=== PATIENT | female | born 1990 | race Caucasian/White ===

== ENCOUNTER 2021-02-09 10:51 | Inpatient (IN) | payer BC ==
[~2021-02-09] VITALS: Ht 175.3 cm; Wt 86.4 kg
[2021-02-09 11:41] LABS: ALANINE AMINOTRANSFERASE 27 U/L (12-78); ALBUMIN 2.7 g/dL (3.4-5.0); ANION GAP 6 mmol/L (5-15); CALCIUM 8.9 mg/dL (8.5-10.1); CHLORIDE 105 mmol/L (98-107); CREATININE 0.65 mg/dL (0.55-1.02)
[2021-02-09 11:43] LABS: ALKALINE PHOSPHATASE 159 U/L (45-117); BILIRUBIN,TOTAL 0.2 mg/dL (0.2-1.0); TOTAL PROTEIN 7.3 g/dL (6.4-8.2)
[2021-02-09 11:54] LABS: BASOPHILS % (AUTO) 1 % (0-1); EOSINOPHILS % (AUTO) 1 % (1-7); LYMPHOCYTES % (AUTO) 23 % (22-44); MEAN CORPUSCULAR HEMOGLOBIN 33.6 pg (27.0-34.8); MEAN CORPUSCULAR HGB CONC 36.1 g/dL (32.4-35.8); MEAN PLATELET VOLUME 9.2 fL (7.4-10.4); MONOCYTES % (AUTO) 8 % (2-9); NEUTROPHILS % (AUTO) 67 % (42-75); PLATELET COUNT 183 x10^3/uL (130-400); RED BLOOD COUNT 3.92 x10^6/uL (3.82-5.3)
[2021-02-09 11:57] LABS: MICROSCOPIC INDICATED
[2021-02-09 12:28] LABS: CREATININE,URINE RANDOM 45.2 mg/dL
[2021-02-09] MEDS ORDERED: OXYTOCIN 30U/ 0.9% NaCL 500ML 500 ML IV ONE (13:00)
[2021-02-09] MEDS ORDERED: LACTATED RINGERS 1,000 ML IV SCH (13:00)
[2021-02-09] MEDS ORDERED: FENTANYL PF 100 MCG/2ML IVPush PRN (13:00)
[2021-02-09] MEDS ORDERED: TERBUTALINE 1 MG/ML, 1ML IVPush PRN (13:00)
[2021-02-09] MEDS ORDERED: TERBUTALINE 1 MG/ML, 1ML SQ PRN (13:00)
[2021-02-09] MEDS ORDERED: CALCIUM CARBONATE 500 MG TAB.CHEW PO PRN ×2 (13:00→21:00)
[2021-02-09] MEDS ORDERED: D5%-LACTATED RINGERS 1,000 ML IV SCH (13:00)
[2021-02-09] MEDS ORDERED: FENTANYL PF 100 MCG/2ML IV PRN (13:00)
[2021-02-09] MEDS ORDERED: ONDANSETRON 2MG/ML, 2ML IVPush PRN (13:00)
[2021-02-09] MEDS ORDERED: LIDOCAINE 1%, 20ML ONE ×2 (13:41→20:40)
[2021-02-09] MEDS ORDERED: MISOPROSTOL 200 MCG TABLET ONE (13:41)
[2021-02-09] MEDS ORDERED: NEWBORN KIT ONE (13:41)
[2021-02-09] MEDS ORDERED: MAGNESIUM HYDROXIDE 8%, 30ML UDC PO PRN (21:00)
[2021-02-09] MEDS ORDERED: MISOPROSTOL 200 MCG TABLET PR PRN (21:00)
[2021-02-09] MEDS ORDERED: ONDANSETRON 2MG/ML, 2ML IV PRN (21:00)
[2021-02-09] MEDS ORDERED: DOCUSATE 100 MG CAPSULE PO PRN (21:00)
[2021-02-09] MEDS ORDERED: RHOGAM FROM BLOOD BANK 1 NOTE EA IM/IV ONE (21:00)
[2021-02-09] MEDS ORDERED: OXYTOCIN 10 UNITS/ML, 1ML IM PRN (21:00)
[2021-02-09] MEDS ORDERED: OXYcodone/APAP 5/325MG TABLET PO PRN ×2 (21:00→21:11)
[2021-02-09] MEDS ORDERED: DIPH,PERTUSS(ACELL),TET VAC/PF NC IM-VACC PRN (21:00)
[2021-02-09] MEDS ORDERED: SIMETHICONE 80 MG CHEW TAB PO PRN (21:00)
[2021-02-09] MEDS ORDERED: ACETAMINOPHEN 325 MG TABLET PO PRN ×2 (21:00→21:11)
[2021-02-09] MEDS ORDERED: IBUPROFEN 600 MG TABLET PO PRN (21:11)
[2021-02-09] MEDS: OXYTOCIN 30U/ 0.9% NaCL 500ML 500 ML IV SCH (22:15)
[2021-02-09 22:50] VITALS: BP 124/79
[2021-02-10 03:00] VITALS: BP 107/67
[2021-02-10 05:28] LABS: BASOPHILS % (AUTO) 1 % (0-1); EOSINOPHILS % (AUTO) 0 % (1-7); LYMPHOCYTES % (AUTO) 14 % (22-44); MEAN CORPUSCULAR HEMOGLOBIN 33.4 pg (27.0-34.8); MEAN CORPUSCULAR HGB CONC 36.1 g/dL (32.4-35.8); MEAN PLATELET VOLUME 8.4 fL (7.4-10.4); MONOCYTES % (AUTO) 7 % (2-9); NEUTROPHILS % (AUTO) 79 % (42-75); PLATELET COUNT 152 x10^3/uL (130-400); RED CELL DISTRIBUTION WIDTH 12.8 % (9.6-15.2)
[2021-02-10] MEDS: OXYTOCIN 30U/ 0.9% NaCL 500ML 500 ML IV SCH ×2 (07:00→17:00)
[2021-02-10 08:00] VITALS: BP 108/66
[2021-02-10] MEDS ORDERED: PRENATAL VIT/IRON/FA 1 EACH TABLET PO SCH (09:00)
[2021-02-10] MEDS ORDERED: IBUP-1222 PO (10:03)
[2021-02-10 12:30] VITALS: BP 122/75
[2021-02-10 17:00] VITALS: BP 128/83
[2021-02-10 20:30] VITALS: BP 116/73
== END 2021-02-10 21:15 | disposition home or self-care (01) | DRG 807 ==
LOC: LDOP 10:51 → LDIP 12:52 → 2NW 22:30
PROVIDERS: ADMIT Student in an Organized Health Care Education/Training Program; ATTEND Student in an Organized Health Care Education/Training Program
PROC: 10E0XZZ Delivery of Products of Conception, External Approach (ICD-10-PCS; principal; 2021-02-09)
PROC: 0KQM0ZZ Repair Perineum Muscle, Open Approach (ICD-10-PCS; 2021-02-09)
DX: O14.04 Mild to moderate pre-eclampsia, complicating childbirth (principal); Z37.0 Single live birth; Z20.822 Contact with and (suspected) exposure to COVID-19; O69.81X0 Labor and delivery complicated by cord around neck, without compression, not applicable or unspecified; O70.1 Second degree perineal laceration during delivery; E55.9 Vitamin D deficiency, unspecified; O99.284 Endocrine, nutritional and metabolic diseases complicating childbirth; Z3A.39 39 weeks gestation of pregnancy; Z80.3 Family history of malignant neoplasm of breast; Z81.8 Family history of other mental and behavioral disorders
CPT/HCPCS: 36415; 80053; 81001; 82570; 84156; 85025; 86592; 86850; 86900; 87635; G0378; J2590; J7120